=== PATIENT | male | born 2000 | race African-American/Black ===

== ENCOUNTER 2019-03-29 23:50 | Emergency (ER) | payer MEDICAID ==
[~2019-03-29] VITALS: Ht 167.6 cm; Wt 72.6 kg
[2019-03-30 00:03] VITALS: Ht 167.6 cm; Wt 72.6 kg
[2019-03-30 02:46] VITALS: BP 159/111
== END 2019-03-30 02:46 | disposition home or self-care (01) ==
LOC: ED 23:50
DX: I10 Essential (primary) hypertension (principal)